=== PATIENT | male | born 1990 | race Caucasian/White ===

== ENCOUNTER 2022-11-01 18:27 | Emergency (ER) | payer OTHER ==
[2022-11-01] MEDS ORDERED: Lidocaine 1% with EPINEPHrine 1:100,000 20 ML MDV INJECT ONE (18:59)
[2022-11-01] MEDS ORDERED: Lidocaine/EPINEPHrine/Tetracaine Soln 1 ML TOP ONE ×2 (18:59→20:16)
[2022-11-01] MEDS ORDERED: Lidocaine/EPINEPHrine/Tetracaine Soln 1 ML ONE (19:21)
[2022-11-01] MEDS ORDERED: Lidocaine 1% 20 ML MDV ONE (20:17)
== END 2022-11-01 20:38 | disposition home or self-care (01) ==
LOC: JD.ED 18:27 → SUPCPDRO 18:27 → JD.ED 20:38
DX: L02.31 Cutaneous abscess of buttock (principal); Z86.16 Personal history of COVID-19
CPT/HCPCS: 10060; 10061; 99282; J3490